=== PATIENT | male | born 1975 | race Caucasian/White ===

== ENCOUNTER 2016-08-09 18:38 | Emergency (ER) | payer OTHER ==
[2016-08-09 18:51] VITALS: BP 178/104; PULSE 76; RESP 15; TEMP 97.7; O2SAT 97
[2016-08-09] MEDS ORDERED: TRIAMCINOLONE ACETONIDE 40 MG/ML VIAL IM ONE (20:20)
[2016-08-09] MEDS ORDERED: HYDROCOD/APAP 5/325 PREPACK#6 BTL TAKEHOME ONE (21:19)
--- NOTE | 2016-08-09 21:21 | UCPHY ---
H & P Time Seen by Provider: 08/09/16 18:49 Patient Type: New HPI/ROS: This patient complains of knee pain and swelling. He thinks he has a gout flare. He gets gout in his toes at times but has never had a in his knee. However, He noted 2 discrete episodes of pain 1 was getting out of his truck with a mild click sensation to the knee and then when getting up from the sofa within the last 24 hours felt another discomfort with more swelling since then. He reports that for quite some time he has had some crepitance to the knee in that it clicks with every pedal when he is on a bicycle or exercise bike. He reports that since the worsening symptoms over the past 24 hours he cannot completely straighten the knee or completely flex it. ROS: No fevers chills or other constitutional symptoms. No other musculoskeletal complaints. No feeling of instability to the affected knee. No tearing sensation of the quadriceps muscle region. 7 point ROS is otherwise negative. Social History: Recent change in diet with increased protein intake. He change from drinking rum to drinking vodka socially Smoking Status: Never smoked Physical Exam: Physical Exam Vital signs are normal. General: No acute distress HEENT: Atraumatic. Eyes: Pupils equal and react to light. Extraocular motions are intact. Lungs: No respiratory distress. Cardiac: Brisk capillary refill is intact throughout. Pulses are 2+ and symmetric in the affected extremity. Skin: No rash or pallor. Right knee: Moderate swelling just superior to the patella. Initially this appeared to be a joint effusion but is more a suprapatellar effusion on further inspection. He is unable to completely straighten the leg or completely flex it and this includes with passive attempts. No obvious crepitance on exam. No ligamentous instability on varus valgus or Janeth's and no increase in pain with those maneuvers. Neuro: Alert and oriented x3 with no sensorimotor deficits. Initial differential diagnosis: muscle tear, patellar tendinitis, patellofemoral syndrome, meniscal injury, potential bucket-handle meniscal disruption with locked knee doubt gout, pseudogout, DJD Constitutional: Initial Vital Signs Temperature (C) 36.5 C 08/09/16 18:50 Heart Rate 76 08/09/16 18:50 Respiratory Rate 15 08/09/16 18:50 Blood Pressure 178/104 H 08/09/16 18:50 O2 Sat (%) 97 08/09/16 18:50 O2 Delivery Mode Room Air Allergies/Adverse Reactions: Penicillins Allergy (Verified 08/09/16 18:50) Home Medications: Medication Instructions Recorded Hydrocodone/APAP 5/325 [[place] 1 - 2 tab PO Q4PRN PRN #14 tab 08/09/16 5/325 (*)] MDM/Departure - MDM Diagnostics: Knee x-ray: No significant degenerative or other bony changes by my interpretation. Suprapatellar effusion is present. Procedures: After initial inspection the planned on a knee tap for apparent knee effusion. I did prep the lateral knee with chlorhexidine and used a 27 gauge needle inject lidocaine and during this initial injection realize that this is not a knee effusion as much as a suprapatellar effusion. I counseled patient regarding this and apologized for the unnecessary injection. Band-Aid was placed. Patient was understanding. He is placed in John wrap for comfort Medications Given: Discontinued Medications Hydrocodone Bitart/Acetaminophen ([place] 5/325mg Prepack#6) 1 btl TAKEHOME EDNOW ONE Stop: 08/09/16 21:20 Last Admin: 08/09/16 21:30 Dose: 1 btl Triamcinolone Acetonide (Kenalog-40) 40 mg IM EDNOW ONE Stop: 08/09/16 20:21 Last Admin: 08/09/16 21:08 Dose: Not Given ED Course/Re-evaluation: Discussion: I suspect patellofemoral syndrome versus meniscal injury. I feel meniscal injury is more likely with evidence of potential locked knee given limited range of motion. I counseled patient regarding this. He will follow up with orthopedics for further evaluation. - Depart Disposition: Home, Routine, Self-Care Clinical Impression: Injury of meniscus of knee Qualifiers: Encounter type: initial encounter Laterality: right Qualified Code(s): S83.91XA - Sprain of unspecified site of right knee, initial encounter Condition: Good Instructions: Hydrocodone/Acetaminophen (By mouth), Meniscus Tear (ED) Additional Instructions: Diagnosis: Knee pain He will likely have a meniscus tear-cartilage tear to her knee causing her symptoms. Plan: John wrap Ibuprofen-600 mg per 6 hours Tylenol or Vicodin in addition if needed. No driving, alcohol or come Vicodin Call Dr. Ramirez or Dr. dunaway which arrange follow-up appointment for sometime this week. Return here to the emergency department for any significant worsening despite the treatment plan. Prescriptions: Hydrocodone/APAP 5/325 [[place] 5/325 (*)] 1 - 2 tab PO Q4PRN PRN #14 tab PRN Reason: Pain Referrals: Unknown,Unknown [Primary Care Provider] - As per Instructions Yashira Ramirez MD [Medical Doctor] - As per Instructions Erendira Lovett MD [Medical Doctor] - As per Instructions - PQRS PQRS Measurement: NA
== END 2016-08-09 21:32 | disposition home or self-care (01) ==
LOC: CED 18:38
DX: S83.91XA Sprain of unspecified site of right knee, initial encounter (principal); Z88.0 Allergy status to penicillin
CPT/HCPCS: 73562-PO; 99203-PO; G0463-PO; J3301